=== PATIENT | female | born 1990 | race African-American/Black ===

== ENCOUNTER 2017-02-22 18:22 | Emergency (ER) | payer OTHER ==
[2017-02-22 18:33] VITALS: BP 147/86; BMI 29.2
[2017-02-22 19:17] LABS: BILIRUBIN,URINE NEGATIVE (NEGATIVE); BLOOD/HEMOGLOBIN,URINE 1+ (NEGATIVE); GLUCOSE, URINE NEGATIVE (NEGATIVE); KETONES,URINE NEGATIVE (NEGATIVE); LEUKOCYTE ESTERASE ,URINE 3+ (NEGATIVE); NITRITES,URINE NEGATIVE (NEGATIVE); PROTEIN,URINE NEGATIVE (NEGATIVE); UROBILINOGEN,URINE NORMAL (NORMAL)
[2017-02-22 19:29] LABS: APPEARANCE,URINE HAZY (CLEAR); BACTERIA,URINE 1+ /HPF (NEGATIVE); COLOR,URINE YELLOW (YELLOW); SQUAMOUS EPITHELIAL CELL,UR FEW /HPF (NEGATIVE)
[2017-02-22 19:51] LABS: AMNISURE ROM TEST NO MEMBRANES RUPTURE (NO RUPTURE)
== END 2017-02-22 20:17 | disposition home or self-care (01) ==
LOC: ER 18:54
DX: O60.14X0 Preterm labor third trimester with preterm delivery third trimester, not applicable or unspecified (principal)
CPT/HCPCS: 80307; 81001; 84112; 87086; 87088; 87186; 99284; G0434

== ENCOUNTER → 2017-03-04 | Day surgery (SDC) | payer OTHER ==
[2017-02-22 18:33] VITALS: BP 147/86
[2017-03-04 11:11] LABS: BILIRUBIN,URINE NEGATIVE (NEGATIVE); BLOOD/HEMOGLOBIN,URINE NEGATIVE (NEGATIVE); GLUCOSE, URINE NEGATIVE (NEGATIVE); KETONES,URINE NEGATIVE (NEGATIVE); LEUKOCYTE ESTERASE ,URINE 3+ (NEGATIVE); NITRITES,URINE NEGATIVE (NEGATIVE); PROTEIN,URINE NEGATIVE (NEGATIVE); UROBILINOGEN,URINE NORMAL (NORMAL)
[2017-03-04 11:13] LABS: BASOPHILS # (AUTO) 0.1 X10^3/uL (0.0-0.1); BASOPHILS % (AUTO) 0.6 % (0.2-1.0); EOSINOPHILS # (AUTO) 0.1 x10^3/uL (0.0-0.2); EOSINOPHILS % (AUTO) 1.5 % (0.9-2.9); HEMATOCRIT 29.6 % (36.0-47.0); HEMOGLOBIN 9.8 g/dL (12.0-16.0); LYMPHOCYTES # (AUTO) 2.5 X10^3/uL (1.3-2.9); LYMPHOCYTES % (AUTO) 26.5 % (21.0-51.0); MEAN CORPUSCULAR HEMOGLOBIN 24.6 pg (27.0-34.0); MEAN CORPUSCULAR HGB CONC 33.1 g/dL (33.0-35.0); MEAN CORPUSCULAR VOLUME 74.4 fL (80.0-100.0); MEAN PLATELET VOLUME 7.4 fL (7.4-11.0); MONOCYTES # (AUTO) 1.5 x10^3/uL (0.3-0.8); MONOCYTES % (AUTO) 15.4 % (0.0-13.0); NEUTROPHILS # (AUTO) 5.3 x10^3/uL (2.2-4.8); PLATELET COUNT 351 X10^3/uL (150.0-450.0); RED BLOOD COUNT 3.98 X10^6/uL (3.5-5.4); RED CELL DISTRIBUTION WIDTH 16.1 % (11.6-16.5); WHITE BLOOD COUNT 9.4 X10^3/uL (3.6-10.0)
[2017-03-04 11:16] LABS: BLOOD UREA NITROGEN 4 mg/dL (7-18); CALCIUM 8.5 mg/dL (8.5-10.1); CARBON DIOXIDE 25.5 mmol/L (21-32); CHLORIDE 104 mmol/L (98-107); CREATININE 0.68 mg/dL (0.55-1.02); GLUCOSE 74 mg/dL (65-99); SODIUM 134 mmol/L (136-145); eGFR BLACK RACES > 60 (>60); eGFR NON BLACK RACES > 60 (>60)
[2017-03-04 11:24] LABS: APPEARANCE,URINE CLEAR (CLEAR); BACTERIA,URINE 1+ /HPF (NEGATIVE); COLOR,URINE YELLOW (YELLOW); RBC,URINE NONE SEEN /HPF (NEGATIVE); SQUAMOUS EPITHELIAL CELL,UR MODERATE /HPF (NEGATIVE)
[2017-03-04 11:56] LABS: HYPOCHROMASIA SLIGHT; PLATELET MORPHOLOGY COMMENT NORMAL (NORMAL)
== END ==
LOC: LAB 10:42
PROVIDERS: ATTEND Specialist
DX: Z01.818 Encounter for other preprocedural examination (principal); Z34.83 Encounter for supervision of other normal pregnancy, third trimester; B96.29 Other Escherichia coli [E. coli] as the cause of diseases classified elsewhere
CPT/HCPCS: 36415; 80048; 81001; 83615; 84450; 84460; 84550; 85025; 85384; 85610; 85730; 86592; 86850; 86900; 86901; 87086; 87088; 87186; A4216; J2405; J2550; J2590; J3010; J7042; J7120

== ENCOUNTER 2017-03-06 06:25 | Inpatient (IN) | payer OTHER ==
[2017-03-06] MEDS ORDERED: D5 LR 1000 ML 1,000 ML IV ONE (06:43)
[2017-03-06] MEDS ORDERED: D5LR 1000ML W PITOCIN 10 U/L 1,000 ML IV ONE (06:44)
[2017-03-06] MEDS ORDERED: D5 1/2 NS 1000ML W PITOCIN 20 U/L 1,000 ML IV ONE (06:44)
[2017-03-06] MEDS ORDERED: PITOCIN ONE (06:45)
--- NOTE | 2017-03-06 07:01 | DR.OB ---
OB Quick Note - Assessment/Plan Assessment/Plan: L&D 03/06/17 at 6:55am S-No complaint. O-Afebrile,VSS PME=408 with good LTV, +accels, no decels. CTX=none CVX=2-3cm/50%/-1/VTX AROM with clear fluid. IUPC and FSE placed. A-IUP at 38 1/7 weeks for induction PIH Anemia P-Begin pitocin induction F/U preeclamptic labs Anticipate
[2017-03-06] MEDS ORDERED: PITOCIN 10 UNITS in D5 LR 1000 ML 1,000 ML IV PRN (07:15)
[2017-03-06] MEDS ORDERED: NUBAIN INJ 200 MG VIAL MULTIDOSE IVP PRN (07:15)
[2017-03-06] MEDS ORDERED: D5 1/2 NS 1000 ML 1,000 ML IV SCH (07:15)
[2017-03-06] MEDS ORDERED: PITOCIN IVP ONE (07:15)
[2017-03-06] MEDS ORDERED: REGLAN INJ 10 MG VIAL IVP PRN ×2 (07:15→13:30)
[2017-03-06] MEDS ORDERED: MORPHINE SULFATE INJ 2 MG IVP PRN (07:15)
[2017-03-06] MEDS ORDERED: PHENERGAN INJ 25 MG IV PRN ×3 (07:15→13:30)
[2017-03-06] MEDS ORDERED: LR 1000 ML IV 1,000 ML IV ONE ×2 (07:18→10:42)
[2017-03-06] MEDS ORDERED: FENTANYL INJ 100 mcg ONE (07:19)
[2017-03-06] MEDS ORDERED: NAROPIN EPIDURAL 0.2% + FENTANYL 90MCG 60 ML EPI ONE (07:19)
[2017-03-06 07:59] LABS: URIC ACID 3.9 mg/dL (2.6-6.0)
[2017-03-06] MEDS ORDERED: FENTANYL INJ 100 mcg EPI ONE (10:41)
[2017-03-06] MEDS ORDERED: NAROPIN EPIDURAL 0.2% 60 ML with FENTANYL INJ 100 mcg 90 MCG IVP SCH ×2 (11:00)
[2017-03-06] MEDS ORDERED: ZOFRAN INJ 4 MG VIAL ONE (11:53)
[2017-03-06] MEDS ORDERED: PHENERGAN INJ 25 MG ONE (11:55)
[2017-03-06] MEDS ORDERED: MOTRIN TAB 800 MG PO PRN (12:51)
--- NOTE | 2017-03-06 12:58 | DR.OB ---
OB Quick Note - Assessment/Plan Assessment/Plan: Delivery Note CERTIFIED NEURODIAGNOSTIC TECHNOLOGIST 03/06/17 at 12:18pm Patient complete and pushing. Head delivered over intact perineum. No nuchal cord. Nose and mouth bulb suctioned. Body delivered over intact perineum. Cord clamped x 2 and cut. Infant handed to attendant. Cord sent for gases. Placenta delivered spontaneously / intact / 3 vessel cord. No CVX / vaginal / perineal tears. Viable female infant, VTX/OA, wt=7'1" and 9/9, stable to NBN. Mother stable to RR. MDG=471fm.
[2017-03-06] MEDS ORDERED: D5 1/2 NS 1000 ML 1,000 ML with PITOCIN 20 UNITS IV SCH ×2 (13:00)
[2017-03-06] MEDS ORDERED: DERMOPLAST SPRAY TOP PRN (13:30)
[2017-03-06] MEDS ORDERED: MILK OF MAGNESIA PO PRN (13:30)
[2017-03-06] MEDS ORDERED: AMBIEN PO PRN (13:30)
[2017-03-06] MEDS ORDERED: ADACEL TDaP IM ONE (13:30)
[2017-03-06] MEDS: MOTRIN TAB 800 MG PO PRN (19:32)
[2017-03-06] MEDS: ZANTAC PO SCH (21:02)
[2017-03-07] MEDS: MOTRIN TAB 800 MG PO PRN (03:29)
[2017-03-07 05:56] LABS: HEMATOCRIT 26.3 % (36.0-47.0); HEMOGLOBIN 8.7 g/dL (12.0-16.0)
[2017-03-07] MEDS: ZANTAC PO SCH (08:27)
[2017-03-07] MEDS ORDERED: PRENATAL PLUS PO SCH (09:00)
[2017-03-07 13:15] VITALS: BP 132/79
[2017-03-07] MEDS: D5 1/2 NS 1000 ML 1,000 ML with PITOCIN 20 UNITS IV SCH ×2 (13:15)
== END 2017-03-07 14:55 | disposition home or self-care (01) | DRG 775 ==
LOC: LD 06:25 → MED/SURG 13:31
PROVIDERS: ADMIT Specialist; ATTEND Specialist
PROC: 10E0XZZ Delivery of Products of Conception, External Approach (ICD-10-PCS; principal; 2017-03-06)
PROC: 10907ZC Drainage of Amniotic Fluid, Therapeutic from Products of Conception, Via Natural or Artificial Opening (ICD-10-PCS; 2017-03-06)
PROC: 3E033VJ Introduction of Other Hormone into Peripheral Vein, Percutaneous Approach (ICD-10-PCS; 2017-03-06)
PROC: 00HU33Z Insertion of Infusion Device into Spinal Canal, Percutaneous Approach (ICD-10-PCS; 2017-03-06)
DX: O13.3 Gestational [pregnancy-induced] hypertension without significant proteinuria, third trimester (principal); Z37.0 Single live birth; O99.013 Anemia complicating pregnancy, third trimester; D50.8 Other iron deficiency anemias; Z3A.38 38 weeks gestation of pregnancy
CPT/HCPCS: 36415; 59409; 80048; 81001; 83615; 84450; 84460; 84550; 85014; 85018; 85025; 85384; 85610; 85730; 86592; 86850; 86900; 86901; 87086; 87088; 87186; A4216; A4222; S0197; J2405; J2550; J2590; J3010; J7042; J7120